=== PATIENT | male | born 1965 | race Hispanic/Latino ===

== ENCOUNTER 2025-01-05 21:52 | Emergency (ER) | payer OTHER ==
[2025-01-05 22:20] LABS: #Basophils 0.03 10x3/uL (0.0-0.2); #Eosinophils Less than 0.03 10x3/uL (0.0-0.5); #Monocytes 1.64 10x3/uL (0.0-1.1); #Neutrophils 16.24 10x3/uL (1.5-8.4); %Basophils 0.1 % (0.0-2.0); %Eosinophils 0.1 % (0.0-6.0); %Lymphocytes 10.2 % (18.0-47.0); %Monocytes 8.1 % (0.0-10.0); %Neutrophils 80.8 % (40.0-75.0); Hematocrit 44.5 % (38.8-50.0); Hemoglobin 14.8 g/dL (13.5-17.5); Mean Corpuscular Hemoglobin 30.3 pg (27.0-33.0); Mean Corpuscular Volume 91.0 fL (81.2-95.1); Platelet Count 349 10x3/uL (150-450); Red Blood Cell (RBC) Count 4.89 10x6/uL (4.32-5.72); White Blood Cell (WBC) Count 20.13 10x3/uL (3.5-10.5)
[2025-01-05 22:21] LABS: Actual Bicarbonate (HCO3v) 24.2 mEq/L (22-28); Analyzer IN Cardio CS ER; Base Excess -1.7 mEq/L (-2 - +2); Calcium, Ionized (venous) 1.13 mmol/L (1.16-1.32); Chloride (VBG) 93 mmol/L (98-106); Hematocrit-VBG 48 % (42.0-52.0); Hemoglobin (Hb) 16.4 g/dL (13.1-17.2); Potassium (VBG) 4.32 mmol/L (3.70-5.30); Puncture Site Other Site; RapidComm Collect By lab; Sodium 132 mmol/L (133-146)
[2025-01-05 22:36] LABS: Anion Gap 13 mmol/L (10-20); BUN (Urea Nitrogen) 12 mg/dL (8.4-25.7); Calc. Creatinine Clearance 0 mL/min (70-130); Calcium 9.2 mg/dL (7.8-10.44); Carbon Dioxide 29 mmol/L (22-29); Chloride 94 mmol/L (98-107); Glucose 151 mg/dL (70-105); Potassium 4.3 mmol/L (3.5-5.1); Sodium 132 mmol/L (136-145)
[2025-01-06 02:06] LABS: Actual Bicarbonate (HCO3a) 28.6 mEq/L (22-28); Analyzer IN Cardio CS ER; Base Excess (BEa) 2.4 mEq/L (-2.0 to +3.0); CO2 Tension 49.7 mmHg (35.0-45.0); Calcium, Ionized (arterial) 1.20 mmol/L (1.12-1.30); Hematocrit-ABG 49 % (42.0-52.0); Hemoglobin (Hb) 16.8 g/dL (14.0-18.0); O2 Tension (PaO2), arterial 59.2 mmHg (80.0-100.0); Potassium - ABG Lab 4.58 mmol/L (3.70-5.30); Puncture Site Right Radial artery; pH, Arterial 7.378 (7.35-7.45)
[2025-01-06 02:09] LABS: ALV-art Gradient 163.875 mmHg (0-20)
== END 2025-01-06 06:31 | disposition short-term general hospital (02) ==
LOC: CSHERS 21:52
DX: J84.10 Pulmonary fibrosis, unspecified (principal); J44.1 Chronic obstructive pulmonary disease with (acute) exacerbation; R09.02 Hypoxemia; Z79.82 Long term (current) use of aspirin; Z79.51 Long term (current) use of inhaled steroids
CPT/HCPCS: 36415; 36600; 71045; 80048; 82805; 83605; 85025; 94640; 94760; J7620